=== PATIENT | female | born 1945 | race Caucasian/White ===

== ENCOUNTER 2017-06-04 12:36 | Inpatient (IN) | payer MEDICARE, BC ==
[2017-06-04] MEDS ORDERED: Ondansetron 4 MG/2 ML SDV IV PRN (13:10)
[2017-06-04] MEDS ORDERED: Acetaminophen 325 MG Tab PO PRN (13:10)
[2017-06-04] MEDS ORDERED: Albuterol/Ipratropium 3.0-0.5 MG/3 ML Neb Soln NEB PRN (13:10)
[2017-06-04] MEDS ORDERED: Magnesium Hydroxide 400 MG/5 ML Susp 30 ML Cup PO PRN (13:10)
[2017-06-04] MEDS ORDERED: Lactated Ringers 1,000 ML IV SCH (13:15)
[2017-06-04 14:06] LABS: CHLORIDE,CL 102 mEq/L (98-106); SODIUM,NA 137 mEq/L (136-145)
[2017-06-04] MEDS ORDERED: ALPRAZolam 0.25 MG Tab PO PRN (16:01)
[2017-06-04] MEDS ORDERED: Warfarin 2.5 MG Tab PO SCH (17:00)
[2017-06-04] MEDS: Calcium Carbonate/Vitamin D3 1250 MG-200 Unit Tab PO SCH (17:26)
[2017-06-04] MEDS: D5 1/2 NS w/ 20 mEq/L KCl 1,000 ML IV SCH (19:16)
[2017-06-04] MEDS: atorvaSTATin 10 MG Tab PO SCH (19:46)
[2017-06-04] MEDS: Temazepam 15 MG Cap PO PRN (20:48)
[2017-06-04] MEDS ORDERED: methylPREDNISolone Sodium Succinate 125 MG/2 ML SDV IVPUSH SCH (22:00)
[2017-06-05] MEDS: D5 1/2 NS w/ 20 mEq/L KCl 1,000 ML IV SCH ×2 (03:23→13:26)
[2017-06-05] MEDS: Calcium Carbonate/Vitamin D3 1250 MG-200 Unit Tab PO SCH (07:37)
[2017-06-05 11:45] LABS: CHLORIDE,CL 109 mEq/L (98-106); SODIUM,NA 143 mEq/L (136-145)
--- NOTE | 2017-06-05 13:15 | PCM.PN ---
- General Info Date of Service: 06/05/17 Admission Dx/Problem (Free Text): Weakness Viral Bronchiolitis Leukopenia Subjective Update: Patient reports she is feeling much better than yesterday. She continues to feel weak, but reports she is at least able to be up moving some, which she wasn 't able to do yesterday. She has ambulated in the coughlin this morning. Does report some dyspnea with exertion. She reports she has continued cough. She has coughed up some sputum a couple times. Sputum sample sent. She has been afebrile through the night. She has been eating and drinking without difficulty. Her weight is up 3 lbs today. She does report she has had some diarrhea this morning. She does not feel ready for discharge as she continues to feel weak. Functional Status: Reports: Pain Controlled, Tolerating Diet, Ambulating, Urinating. Denies: New Symptoms - Review of Systems General: Reports: Weakness, Fatigue, Malaise, Appetite (improved). Denies: Fever, Chills, Night Sweats HEENT: Reports: Post Nasal Drip, Sinus Congestion, Rhinitis. Denies: Headaches , Sore Throat Pulmonary: Reports: Shortness of Breath, Pleuritic Chest Pain (to lower bilateral ribs/diaphragm), Cough, Sputum. Denies: Hemoptysis, Wheezing Cardiovascular: Reports: Dyspnea on Exertion. Denies: Chest Pain, Palpitations , Edema, Lightheadedness Gastrointestinal: Reports: Diarrhea. Denies: Abdominal Pain, Constipation, Decreased Appetite, Hematochezia, Melena, Nausea, Vomiting Genitourinary: Reports: No Symptoms. Denies: Dysuria, Frequency, Urgency Musculoskeletal: Reports: No Symptoms Skin: Reports: Pallor Neurological: Reports: No Symptoms Psychiatric: Reports: No Symptoms - Patient Data Vitals - Most Recent: Last Vital Signs Temp 97.7 F 06/05/17 07:50 Pulse 72 06/05/17 07:50 Resp 20 06/05/17 07:50 BP 111/67 06/05/17 07:50 Pulse Ox 98 06/05/17 07:50 Weight - Most Recent: 124 lb 4.8 oz I&O - Last 24 Hours: Intake & Output 06/04/17 06/05/17 06/05/17 22:59 06:59 14:59 Intake Total 165 1300 200 Output Total 800 600 600 Balance -635 700 -400 Lab Results Last 24 Hours: Laboratory Results - last 24 hr 06/04/17 06/04/17 06/04/17 Range/Units 13:30 13:30 13:30 WBC 3.2 L (5.0-10.0) 10^3/uL RBC 4.88 (4.00-5.50) 10^6/uL Hgb 15.1 (12.0-16.0) g/dL Hct 42.6 (37.0-47.0) % MCV 87.3 (82.0-94.0) fL MCH 30.9 (27.0-32.0) pg MCHC 35.4 (33.0-38.0) g/dL RDW Coeff of Finn 12.7 (11.0-15.0) % Plt Count 153 (150-400) 10^3/uL Neut % (Auto) 57.3 (35-85) % Lymph % (Auto) 27.0 (10-55) % Randall % (Auto) 15.4 (0-16) % Eos % (Auto) 0 (0-5) % Baso % (Auto) 0.3 (0-3) % Neut # (Auto) 1.83 (1.80-7.00) 10^3/uL Lymph # (Auto) 0.86 L (1.00-4.80) 10^3/uL Randall # (Auto) 0.49 (0.00-0.80) 10^3/uL Eos # (Auto) 0.00 (0.00-0.45) 10^3/uL Baso # (Auto) 0.01 10^3/uL ESR (0-20) mm/hr PT 20.2 H (9.7-12.3) SEC INR 1.84 H (0.92-1.18) Sodium 137 (136-145) mEq/L Potassium 3.1 L (3.5-5.0) mEq/L Chloride 102 (98-106) mEq/L Carbon Dioxide 27 (21-32) mmol/L BUN 16 (7-18) mg/dL Creatinine 0.9 (0.6-1.0) mg/dL Est Cr Clr Drug Dosing 50.00 mL/min Estimated GFR (MDRD) > 60 (>=60) mL/min Glucose 98 (75-99) mg/dL Calcium 8.2 L (8.4-10.1) mg/dL Magnesium 2.2 (1.8-2.4) mg/dL Total Bilirubin 0.7 (0.0-1.0) mg/dL AST 47 H (15-37) U/L ALT 46 (12-78) U/L Alkaline Phosphatase 67 (46-116) U/L Creatine Kinase (21-215) U/L C-Reactive Protein 1.0 H (0.2-0.8) mg/dL Total Protein 6.5 (6.4-8.2) g/dL Albumin 3.2 L (3.4-5.0) g/dL TSH, Ultra Sensitive 1.28 (0.36-5.60) uIU/mL Urine Color (YELLOW) Urine Appearance (CLEAR) Urine pH (4.5-8.0) Ur Specific [place] (1.003-1.020) Urine Protein (NEGATIVE) mg/dL Urine Glucose (UA) (NEGATIVE) mg/dL Urine Ketones (NEGATIVE) mg/dL Urine Occult Blood (NEGATIVE) Urine Nitrite (NEGATIVE) Urine Bilirubin (NEGATIVE) Urine Urobilinogen (0.2-1.0) EU/dL Ur Leukocyte Esterase (NEGATIVE) Urine RBC (0-5) /HPF Urine WBC (0-5) /HPF Ur Epithelial Cells (NOT SEEN) /HPF 06/04/17 06/05/17 06/05/17 Range/Units 21:50 11:25 11:25 WBC 1.8 L* (5.0-10.0) 10^3/uL RBC 4.61 (4.00-5.50) 10^6/uL Hgb 14.3 (12.0-16.0) g/dL Hct 41.5 (37.0-47.0) % MCV 90.0 (82.0-94.0) fL MCH 31.0 (27.0-32.0) pg MCHC 34.5 (33.0-38.0) g/dL RDW Coeff of Finn 13.0 (11.0-15.0) % Plt Count 154 (150-400) 10^3/uL Neut % (Auto) 46.8 (35-85) % Lymph % (Auto) 36.4 (10-55) % Randall % (Auto) 16.3 H (0-16) % Eos % (Auto) 0 (0-5) % Baso % (Auto) 0.5 (0-3) % Neut # (Auto) 0.86 L (1.80-7.00) 10^3/uL Lymph # (Auto) 0.67 L (1.00-4.80) 10^3/uL Randall # (Auto) 0.30 (0.00-0.80) 10^3/uL Eos # (Auto) 0.00 (0.00-0.45) 10^3/uL Baso # (Auto) 0.01 10^3/uL ESR 6 (0-20) mm/hr PT 22.4 H (9.7-12.3) SEC INR 2.03 H (0.92-1.18) Sodium (136-145) mEq/L Potassium (3.5-5.0) mEq/L Chloride (98-106) mEq/L Carbon Dioxide (21-32) mmol/L BUN (7-18) mg/dL Creatinine (0.6-1.0) mg/dL Est Cr Clr Drug Dosing mL/min Estimated GFR (MDRD) (>=60) mL/min Glucose (75-99) mg/dL Calcium (8.4-10.1) mg/dL Magnesium (1.8-2.4) mg/dL Total Bilirubin (0.0-1.0) mg/dL AST (15-37) U/L ALT (12-78) U/L Alkaline Phosphatase (46-116) U/L Creatine Kinase (21-215) U/L C-Reactive Protein (0.2-0.8) mg/dL Total Protein (6.4-8.2) g/dL Albumin (3.4-5.0) g/dL TSH, Ultra Sensitive (0.36-5.60) uIU/mL Urine Color Light yellow (YELLOW) Urine Appearance Clear (CLEAR) Urine pH 7.5 (4.5-8.0) Ur Specific [place] 1.015 (1.003-1.020) Urine Protein Negative (NEGATIVE) mg/dL Urine Glucose (UA) Negative (NEGATIVE) mg/dL Urine Ketones Negative (NEGATIVE) mg/dL Urine Occult Blood Trace-intact H (NEGATIVE) Urine Nitrite Negative (NEGATIVE) Urine Bilirubin Negative (NEGATIVE) Urine Urobilinogen 0.2 (0.2-1.0) EU/dL Ur Leukocyte Esterase Negative (NEGATIVE) Urine RBC 0-5 (0-5) /HPF Urine WBC Not seen (0-5) /HPF Ur Epithelial Cells Few H (NOT SEEN) /HPF 06/05/ Range/Units 11:25 WBC (5.0-10.0) 10^3/uL RBC (4.00-5.50) 10^6/uL Hgb (12.0-16.0) g/dL Hct (37.0-47.0) % MCV (82.0-94.0) fL MCH (27.0-32.0) pg MCHC (33.0-38.0) g/dL RDW Coeff of Finn (11.0-15.0) % Plt Count (150-400) 10^3/uL Neut % (Auto) (35-85) % Lymph % (Auto) (10-55) % Randall % (Auto) (0-16) % Eos % (Auto) (0-5) % Baso % (Auto) (0-3) % Neut # (Auto) (1.80-7.00) 10^3/uL Lymph # (Auto) (1.00-4.80) 10^3/uL Randall # (Auto) (0.00-0.80) 10^3/uL Eos # (Auto) (0.00-0.45) 10^3/uL Baso # (Auto) 10^3/uL ESR (0-20) mm/hr PT (9.7-12.3) SEC INR (0.92-1.18) Sodium 143 (136-145) mEq/L Potassium 3.5 (3.5-5.0) mEq/L Chloride 109 H (98-106) mEq/L Carbon Dioxide 29 (21-32) mmol/L BUN 11 (7-18) mg/dL Creatinine 0.9 (0.6-1.0) mg/dL Est Cr Clr Drug Dosing 51.03 mL/min Estimated GFR (MDRD) > 60 (>=60) mL/min Glucose 178 H D (75-99) mg/dL Calcium 8.1 L (8.4-10.1) mg/dL Magnesium (1.8-2.4) mg/dL Total Bilirubin (0.0-1.0) mg/dL AST (15-37) U/L ALT (12-78) U/L Alkaline Phosphatase (46-116) U/L Creatine Kinase 90 (21-215) U/L C-Reactive Protein (0.2-0.8) mg/dL Total Protein (6.4-8.2) g/dL Albumin (3.4-5.0) g/dL TSH, Ultra Sensitive (0.36-5.60) uIU/mL Urine Color (YELLOW) Urine Appearance (CLEAR) Urine pH (4.5-8.0) Ur Specific [place] (1.003-1.020) Urine Protein (NEGATIVE) mg/dL Urine Glucose (UA) (NEGATIVE) mg/dL Urine Ketones (NEGATIVE) mg/dL Urine Occult Blood (NEGATIVE) Urine Nitrite (NEGATIVE) Urine Bilirubin (NEGATIVE) Urine Urobilinogen (0.2-1.0) EU/dL Ur Leukocyte Esterase (NEGATIVE) Urine RBC (0-5) /HPF Urine WBC (0-5) /HPF Ur Epithelial Cells (NOT SEEN) /HPF Miguel Results Last 24 Hours: Microbiology 06/04/17 19:00 Gram Stain - Final Sputum - Expectorated 06/04/17 13:35 Influenza Type A Antigen Screen - Final Nasopharyngeal Swab - Nare, Unspecified NEGATIVE INFLUENZA A VIRUS AG Influenza Type B Antigen Screen - Final NEGATIVE INFLUENZA B VIRUS AG Med Orders - Current: Current Medications Acetaminophen (Tylenol) 650 mg PO Q4H PRN PRN Reason: Pain (Mild 1-3)/fever Albuterol/Ipratropium (Duoneb 3.0-0.5 Mg/3 Ml) 3 ml NEB Q4H PRN PRN Reason: Shortness Of Breath/wheezing Alprazolam (Xanax) 0.25 mg PO Q8H PRN PRN Reason: Anxiety Atorvastatin Calcium (Lipitor) 40 mg PO BEDTIME [facility] Last Admin: 06/04/17 19:46 Dose: 40 mg Calcium Carbonate (Calcium Carbonate/Vitamin D 1250 Mg-200 Unit) 2 tab PO BIDMEALS [facility] Last Admin: 06/05/17 07:37 Dose: 2 tab Potassium Chloride/Dextrose/Sod Cl (D5 1/2 Ns W/ 20 Meq/L Kcl) 1,000 mls @ 125 mls/hr IV ASDIRECTED [facility] Last Admin: 06/05/17 03:23 Dose: 125 mls/hr Magnesium Hydroxide (Milk Of Magnesia) 30 ml PO Q12H PRN PRN Reason: Constipation Methylprednisolone Sodium Succinate (Solu-Medrol) 62.5 mg IVPUSH Q24H [facility] Ondansetron HCl (Zofran) 4 mg IV Q6H PRN PRN Reason: Nausea/Vomiting Last Admin: 06/04/17 13:45 Dose: 4 mg Temazepam (Restoril) 15 mg PO BEDTIME PRN PRN Reason: Sleep Last Admin: 06/04/17 20:48 Dose: 15 mg Warfarin Sodium (Coumadin) 5 mg PO SuTuThSa@1200 [facility] Warfarin Sodium (Coumadin) 7.5 mg PO MoWeFr@1200 [facility] Last Admin: 06/04/17 17:26 Dose: 7.5 mg Discontinued Medications Lactated Ringer's (Ringers, Lactated) 1,000 mls @ 125 mls/hr IV ASDIRECTED [facility] Last Admin: 06/04/17 13:38 Dose: 125 mls/hr Methylprednisolone Sodium Succinate (Solu-Medrol) 62.5 mg IVPUSH Q24H [facility] Last Admin: 06/04/17 22:14 Dose: 62.5 mg - Exam Quality Assessment: No: Supplemental Oxygen General: Alert, Oriented, No Acute Distress HEENT: Pupils Equal, Pupils Reactive, EOMI, Other (dry mucous membranes) Neck: Supple Lungs: Clear to Auscultation, Normal Respiratory Effort Cardiovascular: Regular Rate, Regular Rhythm GI/Abdominal Exam: Normal Bowel Sounds, Soft, Non-Tender, No Organomegaly, No Distention, No Abnormal Bruit, No Mass, Pelvis Stable Back Exam: Normal Inspection, Full Range of Motion Extremities: Normal Inspection, Normal Range of Motion, Non-Tender, No Pedal Edema, Normal Capillary Refill Skin: Other (pallor) Neurological: No New Focal Deficit Psy/Mental Status: Alert, Normal Affect, Normal Mood - Problem List & Annotations (1) Leukopenia SNOMED Code(s): 23290916 Code(s): D72.819 - DECREASED WHITE BLOOD CELL COUNT, UNSPECIFIED Status: Acute Current Visit: Yes Qualifiers: Leukopenia type: neutropenia Neutropenia type: due to infection Qualified Code(s): D70.3 - Neutropenia due to infection (2) Weakness generalized SNOMED Code(s): 54785349 Code(s): R53.1 - WEAKNESS Status: Acute Current Visit: Yes (3) Acute viral bronchiolitis SNOMED Code(s): 794744715 Code(s): J21.8 - ACUTE BRONCHIOLITIS DUE TO OTHER SPECIFIED ORGANISMS; B97.89 - OTH VIRAL AGENTS THE CAUSE OF DISEASES CLASSD ELSWHR Status: Acute Current Visit: Yes - Problem List Review Problem List Initiated/Reviewed/Updated: Yes - My Orders Last 24 Hours: My Active Orders 06/04/17 13:10 Patient Status [ADT] Routine Height and Weight [RC] 0600 Oxygen Therapy [RC] .PRN Up ad Diya [RC] .PRN Vital Signs [RC] 0000,0400,0800,1200,1600,2000 Chest 2V [CR] Routine Acetaminophen [Tylenol] 650 mg PO Q4H PRN Albuterol/Ipratropium [DuoNeb 3.0-0.5 MG/3 ML] 3 ml NEB Q4H PRN Magnesium Hydroxide [Milk of Magnesia] 30 ml PO Q12H PRN Ondansetron [Zofran] 4 mg IV Q6H PRN Temazepam [Restoril] 15 mg PO BEDTIME PRN Blood Culture x2 Reflex Set [OM.PC] Stat Resuscitation Status Routine 06/04/17 13:12 Intake and Output [RC] 0600,1800 06/04/17 13:14 RT Aerosol Therapy [RC] .PRN 06/04/17 13:30 CULTURE BLOOD [BC] Stat 06/04/17 13:35 CULTURE BLOOD [BC] Stat 06/04/17 16:01 ALPRAZolam [Xanax] 0.25 mg PO Q8H PRN 06/04/17 16:45 D5 1/2 NS w/ 20 mEq/L KCl 1,000 ml IV ASDIRECTED 06/04/17 17:00 Warfarin [Coumadin] 7.5 mg PO MoWeFr@1200 06/04/17 17:30 Calcium Carbonate/Vitamin D3 [Calcium Carbonate/Vitamin D 1250 MG-200 Unit] 2 tab PO BIDMEALS 06/04/17 19:00 CULTURE SPUTUM + SMEAR [RM] Stat 06/04/17 20:00 atorvaSTATin [Lipitor] 40 mg PO BEDTIME 06/04/17 Dinner Regular Diet [DIET] 06/05/17 12:00 Warfarin [Coumadin] 5 mg PO SuTuThSa@1200 methylPREDNISolone Sod Succ [Solu-MEDROL] 62.5 mg IVPUSH Q24H - Plan Plan:: Continue steroids, duonebs PRN, and IVF Push fluids and encourage PO intake Wash hands frequently WBC 1.8 today. Given neutropenia and sinus congestion, will start Rocephin. Patient has improved tremendously with IVF, I suspect patient will be ready for discharge in 1-2 days.
[2017-06-05] MEDS: Warfarin 5 MG Tab PO SCH (13:25)
[2017-06-05] MEDS: methylPREDNISolone Sodium Succinate 125 MG/2 ML SDV IVPUSH SCH (13:25)
[2017-06-05] MEDS: cefTRIAXone 1 GM Vial IVPUSH SCH (14:00)
[2017-06-05] MEDS: atorvaSTATin 10 MG Tab PO SCH (19:16)
[2017-06-05] MEDS: Temazepam 15 MG Cap PO PRN (19:17)
[2017-06-05] MEDS ORDERED: Lactated Ringers 1,000 ML ONE (21:54)
[2017-06-06 07:31] LABS: CHLORIDE,CL 111 mEq/L (98-106); SODIUM,NA 144 mEq/L (136-145)
[2017-06-06] MEDS ORDERED: Calcium Carbonate/Vitamin D3 1250 MG-200 Unit Tab PO SCH (08:00)
[2017-06-06] MEDS ORDERED: Potassium Chloride 10 MEQ Tab.ER PO SCH (11:15)
[2017-06-06] MEDS ORDERED: Take Home: predniSONE 20 MG, 2 Tab Pack PO ONE (11:39)
[2017-06-06] MEDS ORDERED: valACYclovir 500 MG Tab PO SCH (11:45)
[2017-06-06 11:49] VITALS: BP 132/80
[2017-06-06] MEDS ORDERED: valACYclovir 500 MG Tab PO ONE (11:51)
--- NOTE | 2017-06-06 11:56 | PCM.DCSUM1 ---
Discharge Summary - Hospital Course Free Text/Narrative:: Arleen is a 72 year old female who was admitted to the hospital from the clinic on 06/04/2017. She was admitted with severe weakness, dehydration, and viral bronchiolitis. Lab work upon admission showed leukopenia, suggesting viral etiology. Patient was started on IV steroids, IVF, and duonebs. Throughout hospital stay, patients level of energy and strength improved immensely. On the day of discharge, patient was ambulating in the halls. She reported continued cough, but was overall feeling much better. She felt ready for discharge. She was afebrile and labs were stable. She did have multiple cold sores to her upper and lower lips. Requests valtrex, as she has taken this in the past. She will be discharged home with two additional days of prednisone. She will also be discharged home on Valtrex 1 g BID x 3 days. She will follow up in clinic on Wednesday. Will recheck her labs prior to clinic visit. Patient agreeable to plan. - Discharge Data Discharge Date: 06/06/17 Discharge Disposition: Home, Self-Care 01 Condition: Good - Discharge Diagnosis/Problem(s) (1) Leukopenia SNOMED Code(s): 09764701 ICD Code: D72.819 - DECREASED WHITE BLOOD CELL COUNT, UNSPECIFIED Status: Acute Qualifiers: Leukopenia type: neutropenia Neutropenia type: due to infection Qualified Code(s): D70.3 - Neutropenia due to infection (2) Weakness generalized SNOMED Code(s): 14254050 ICD Code: R53.1 - WEAKNESS Status: Acute (3) Acute viral bronchiolitis SNOMED Code(s): 838407970 ICD Code: J21.8 - ACUTE BRONCHIOLITIS DUE TO OTHER SPECIFIED ORGANISMS; B97.89 - OTH VIRAL AGENTS THE CAUSE OF DISEASES CLASSD ELSWHR Status: Acute - Patient Instructions Diet: Usual Diet as Tolerated Activity: As Tolerated Driving: May Drive Today Notify Provider of: Fever, Increased Pain, Swelling and Redness, Drainage, Nausea and/or Vomiting - Discharge Plan Prescriptions/Med Rec: valACYclovir [Valtrex] 1,000 mg PO BID 1 Days #2 tablet Home Medications: Home Meds ALPRAZolam [Alprazolam] 0.25 tab PO Q8H PRN 11/21/13 [History] Warfarin [Coumadin] 7.5 mg PO MOWEFR 11/21/13 [History] atorvaSTATin [Lipitor] 40 mg PO BEDTIME 11/21/13 [History] Calcium Carbonate/Vitamin D3 [Calcium 600 + Vit D Tablet] 1 each PO BID [History] Warfarin [Coumadin] 5 mg PO SUTUTHSA 05/24/14 [History] Denosumab [Prolia] 60 mg SUBCUT Q180D 03/28/15 [History] Cholecalciferol (Vitamin D3) [Vitamin D] 5,000 unit PO DAILY 06/05/15 [History] Flaxseed Oil 1,000 mg PO BID 06/05/15 [History] valACYclovir [Valtrex] 1,000 mg PO BID 1 Days #2 tablet 06/06/17 [Rx] Patient Handouts: Acute Bronchitis, Dehydration, Adult Referrals: Teresa Hooker NP [ED Midlevel Provider] - - Discharge Summary/Plan Comment Discharge Summary/Plan Comment: Valtrex BID x 3 days for cold sores. Will dispense 3 doses for take home, with 2 additional doses at pharmacy. Prednisone x 2 additional days. Take 20 mg daily x 2 days. Take home medications sent with patient. Follow up in clinic on Wednesday. Will get lab work prior to clinic visit. Push fluids as much as possible the next few days. Wash hands frequently Avoid large crowds Do not return to work until after follow up appointment on Wednesday. Note provided to patient. - General Info Date of Service: 06/06/17 Admission Dx/Problem (Free Text: Weakness Viral Bronchiolitis Leukopenia Subjective Update: Patient reports she is feeling much better. She continues to feel weak, but reports she is at least able to be up moving She has been ambulating in the halls. Does report some dyspnea with exertion. She reports she has continued cough, which seems to be more loose. Sputum sample showed normal lida. She has been afebrile. She has been eating and drinking without difficulty. Her weight is almost back to baseline at 126 lbs. Functional Status: Reports: Pain Controlled, Tolerating Diet, Ambulating, Urinating. Denies: New Symptoms - Review of Systems General: Reports: Weakness (improved), Fatigue (improved). Denies: Fever, Chills HEENT: Reports: Sinus Congestion Pulmonary: Reports: Cough, Sputum. Denies: Shortness of Breath, Pleuritic Chest Pain, Hemoptysis, Wheezing Cardiovascular: Reports: Dyspnea on Exertion. Denies: Chest Pain, Palpitations , Edema, Lightheadedness Gastrointestinal: Reports: No Symptoms Genitourinary: Reports: No Symptoms Musculoskeletal: Reports: No Symptoms Skin: Reports: No Symptoms Neurological: Reports: No Symptoms Psychiatric: Reports: No Symptoms - Patient Data Vitals - Most Recent: Last Vital Signs Temp 98.3 F 06/06/17 08:00 Pulse 65 06/06/17 08:00 Resp 19 06/06/17 08:00 BP 132/80 06/06/17 08:00 Pulse Ox 98 06/06/17 08:00 Weight - Most Recent: 126 lb 12.8 oz I&O - Last 24 hours: Intake & Output 06/05/17 06/06/17 06/06/17 22:59 06:59 14:59 Intake Total 860 300 Output Total 900 900 Balance -40 -600 Lab Results - Last 24 hrs: Laboratory Results - last 24 hr 06/05/17 06/06/17 06/06/17 Range/Units 11:25 06:55 07:00 WBC 3.5 L (5.0-10.0) 10^3/uL RBC 4.39 (4.00-5.50) 10^6/uL Hgb 13.5 (12.0-16.0) g/dL Hct 39.7 (37.0-47.0) % MCV 90.4 (82.0-94.0) fL MCH 30.8 (27.0-32.0) pg MCHC 34.0 (33.0-38.0) g/dL RDW Coeff of Finn 12.9 (11.0-15.0) % Plt Count 159 (150-400) 10^3/uL Neut % (Auto) 45.8 (35-85) % Lymph % (Auto) 40.9 (10-55) % [place] % (Auto) 13.3 (0-16) % Eos % (Auto) 0 (0-5) % Baso % (Auto) 0 (0-3) % Neut # (Auto) 1.59 L (1.80-7.00) 10^3/uL Lymph # (Auto) 1.42 (1.00-4.80) 10^3/uL [place] # (Auto) 0.46 (0.00-0.80) 10^3/uL Eos # (Auto) 0.00 (0.00-0.45) 10^3/uL Baso # (Auto) 0.00 10^3/uL ESR 6 (0-20) mm/hr Sodium 144 (136-145) mEq/L Potassium 3.4 L (3.5-5.0) mEq/L Chloride 111 H (98-106) mEq/L Carbon Dioxide 25 (21-32) mmol/L BUN 9 (7-18) mg/dL Creatinine 0.8 (0.6-1.0) mg/dL Est Cr Clr Drug Dosing 58.56 mL/min Estimated GFR (MDRD) > 60 (>=60) mL/min Glucose 98 D (75-99) mg/dL Calcium 8.0 L (8.4-10.1) mg/dL C-Reactive Protein < 0.2 L (0.2-0.8) mg/dL DANIEL Results - Last 24 hrs: Microbiology 06/04/17 19:00 Gram Stain - Final Sputum - Expectorated Sputum Culture - Preliminary 06/04/17 13:35 Aerobic Blood Culture - Preliminary Blood - Venous - Lab Draw NO GROWTH AFTER 1 DAY Anaerobic Blood Culture - Preliminary NO GROWTH AFTER 1 DAY 06/04/17 13:30 Aerobic Blood Culture - Preliminary Blood - Venous NO GROWTH AFTER 1 DAY Anaerobic Blood Culture - Preliminary NO GROWTH AFTER 1 DAY Med Orders - Current: Current Medications Acetaminophen (Tylenol) 650 mg PO Q4H PRN PRN Reason: Pain (Mild 1-3)/fever Albuterol/Ipratropium (Duoneb 3.0-0.5 Mg/3 Ml) 3 ml NEB Q4H PRN PRN Reason: Shortness Of Breath/wheezing Alprazolam (Xanax) 0.25 mg PO Q8H PRN PRN Reason: Anxiety Atorvastatin Calcium (Lipitor) 40 mg PO BEDTIME [facility] Last Admin: 06/05/17 19:16 Dose: 40 mg Calcium Carbonate (Calcium Carbonate/Vitamin D 1250 Mg-200 Unit) 1 tab PO BIDMEALS [facility] Last Admin: 06/06/17 07:34 Dose: 1 tab Ceftriaxone Sodium (Rocephin) 1 gm IVPUSH Q24H [facility] Last Admin: 06/05/17 14:00 Dose: 1 gm Potassium Chloride/Dextrose/Sod Cl (D5 1/2 Ns W/ 20 Meq/L Kcl) 1,000 mls @ 125 mls/hr IV ASDIRECTED [facility] Last Admin: 06/05/17 13:26 Dose: 125 mls/hr Magnesium Hydroxide (Milk Of Magnesia) 30 ml PO Q12H PRN PRN Reason: Constipation Methylprednisolone Sodium Succinate (Solu-Medrol) 62.5 mg IVPUSH Q24H [facility] Last Admin: 06/05/17 13:25 Dose: 62.5 mg Ondansetron HCl (Zofran) 4 mg IV Q6H PRN PRN Reason: Nausea/Vomiting Last Admin: 06/04/17 13:45 Dose: 4 mg Potassium Chloride (Klor-Con 10) 20 meq PO DAILY [facility] Temazepam (Restoril) 15 mg PO BEDTIME PRN PRN Reason: Sleep Last Admin: 06/05/17 19:17 Dose: 15 mg Valacyclovir HCl (Valtrex) 1,000 mg PO BID [facility] Valacyclovir HCl (Valtrex) 1,000 mg PO BID [facility] Warfarin Sodium (Coumadin) 5 mg PO SuTuThSa@1200 [facility] Last Admin: 06/05/17 13:25 Dose: 5 mg Warfarin Sodium (Coumadin) 7.5 mg PO MoWeFr@1200 [facility] Last Admin: 06/04/17 17:26 Dose: 7.5 mg Discontinued Medications Calcium Carbonate (Calcium Carbonate/Vitamin D 1250 Mg-200 Unit) 2 tab PO BIDMEALS [facility] Last Admin: 06/05/17 07:37 Dose: 2 tab Lactated Ringer's (Ringers, Lactated) 1,000 mls @ 125 mls/hr IV ASDIRECTED [facility] Last Admin: 06/04/17 13:38 Dose: 125 mls/hr Lactated Ringer's (Ringers, Lactated) Confirm Administered Dose 1,000 mls @ as directed .ROUTE .STK-MED ONE Stop: 06/05/17 21:55 Last Admin: 06/05/17 21:41 Dose: 75 ml Methylprednisolone Sodium Succinate (Solu-Medrol) 62.5 mg IVPUSH Q24H [facility] Last Admin: 06/04/17 22:14 Dose: 62.5 mg Prednisone (Take Home: Prednisone 20 Mg, 2 Tab Pack) 1 packet PO ONETIME ONE Stop: 06/06/17 11:40 - Exam Quality Assessment: Denies: Supplemental Oxygen General: Reports: Alert, Oriented Neck: Reports: Supple Lungs: Reports: Clear to Auscultation, Normal Respiratory Effort Cardiovascular: Reports: Regular Rate, Regular Rhythm GI/Abdominal Exam: Normal Bowel Sounds, Soft, Non-Tender, No Organomegaly, No Distention, No Abnormal Bruit, No Mass, Pelvis Stable Back Exam: Reports: Normal Inspection, Full Range of Motion Extremities: Normal Inspection, Normal Range of Motion, Non-Tender, No Pedal Edema, Normal Capillary Refill Skin: Reports: Warm, Dry, Intact Neurological: Reports: No New Focal Deficit Psy/Mental Status: Reports: Alert, Normal Affect, Normal Mood *Q Meaningful Use (DIS) - VTE *Q VTE Criteria *Q: - Stroke *Q Stroke Criteria *Q: - AMI *Q AMI Criteria *Q:
[2017-06-06] MEDS: Warfarin 5 MG Tab PO SCH (12:19)
[2017-06-06] MEDS: methylPREDNISolone Sodium Succinate 125 MG/2 ML SDV IVPUSH SCH (12:20)
[2017-06-06] MEDS: cefTRIAXone 1 GM Vial IVPUSH SCH (14:34)
[2017-06-06] MEDS ORDERED: predniSONE 20 MG Tab PO ONE (15:29)
== END 2017-06-06 15:30 | disposition home or self-care (01) | DRG 948 ==
LOC: CC.MS 12:36 → UNDOADMIN 12:36 → CC.MS 13:10
PROVIDERS: ADMIT Nurse Practitioner Family; ATTEND General Practice
DX: R53.1 Weakness (principal); J21.8 Acute bronchiolitis due to other specified organisms; B97.89 Other viral agents as the cause of diseases classified elsewhere; E86.0 Dehydration; D72.819 Decreased white blood cell count, unspecified; B00.1 Herpesviral vesicular dermatitis; Z88.0 Allergy status to penicillin; Z88.6 Allergy status to analgesic agent; Z79.01 Long term (current) use of anticoagulants; Z79.899 Other long term (current) drug therapy
CPT/HCPCS: 36415; 71020; 80048; 80053; 81001; 82550; 83735; 84443; 85025; 85610; 85651; 86140; 87040; 87070; 87205; 87804; 93005; A9270-GY; J0696; J2405; J2930; J3480; J7120

== ENCOUNTER 2019-03-04 19:52 | Emergency (ER) | payer MEDICARE, BC ==
[2019-03-04] MEDS ORDERED: Acetaminophen/HYDROcodone 325-5 MG Tab PO ONE (19:53)
[2019-03-04] MEDS ORDERED: Ketorolac 10 MG Tab PO ONE (19:53)
[2019-03-04] MEDS ORDERED: Take Home: Acetaminophen/HYDROcodone 325-5 MG, 2 Tab Pack PO ONE (19:55)
[2019-03-04] MEDS ORDERED: Take Home: Ketorolac 10 MG Tab, 4 Tab Pack PO ONE (19:55)
[2019-03-04 20:01] VITALS: BP 144/84; PULSE 77
--- NOTE | 2019-03-04 20:01 | EDM.PDOC ---
ED HPI GENERAL MEDICAL PROBLEM - General Chief Complaint: Lower Extremity Injury/Pain Stated Complaint: right knee pain Time Seen by Provider: 03/04/19 19:52 Source of Information: Reports: Patient History Limitations: Reports: No Limitations - History of Present Illness INITIAL COMMENTS - FREE TEXT/NARRATIVE: in with c/o right knee pain, no injury or trauma, no ankle pain, no hip pain, no redness or other sx, sx since yesterday Onset: Gradual Duration: Day(s): Location: Reports: Upper Extremity, Right Quality: Reports: Ache Severity: Mild Improves with: Reports: None Worsens with: Reports: Movement Associated Symptoms: Reports: No Other Symptoms 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: Other (see below) (ice) - Related Data Allergies Allergy/AdvReac Type Severity Reaction Status Date / Time amoxicillin [Amoxicillin] Allergy Rash Verified 09/30/18 11:00 meperidine HCl [From Demerol] Allergy Cannot Verified 09/30/18 11:00 Remember Penicillins Allergy Shaking Verified 09/30/18 11:00 Home Meds: Home Meds ALPRAZolam [Alprazolam] 0.25 tab PO Q8H PRN 11/21/13 [History] atorvaSTATin [Lipitor] 40 mg PO BEDTIME 11/21/13 [History] Calcium Carbonate/Vitamin D3 [Calcium 600 + Vit D Tablet] 1 each PO BID [History] Warfarin [Coumadin] 5 mg PO DAILY 05/24/14 [History] Denosumab [Prolia] 60 mg SUBCUT Q180D 03/28/15 [History] Cholecalciferol (Vitamin D3) [Vitamin D] 5,000 unit PO DAILY 06/05/15 [History] Flaxseed Oil 1,000 mg PO BID 06/05/15 [History] Folic Acid 1 tab PO DAILY 09/30/18 [History] Multivitamin,Stress Formula [Stress Formula] 1 tab PO DAILY 09/30/18 [History] Past Medical History HEENT History: Reports: Cataract, Impaired Vision Gastrointestinal History: Reports: GERD Musculoskeletal History: Reports: Osteoporosis Neurological History: Reports: TIA - Past Surgical History GI Surgical History: Reports: Appendectomy, Cholecystectomy, Colonoscopy, EGD, Lovely Fundoplication Social & Family History - Family History Cardiac: Reports: Hypertension - Tobacco Use Smoking Status *Q: Never Smoker - Alcohol Use Alcohol Use History: No - Living Situation & Occupation Living situation: Reports: Alone Occupation: Employed Review of Systems - Review of Systems Review Of Systems: See Below Constitutional: Reports: No Symptoms. Denies: Chills, Fever Respiratory: Reports: No Symptoms. Denies: Shortness of Breath Cardiovascular: Reports: No Symptoms. Denies: Chest Pain GI/Abdominal: Reports: No Symptoms. Denies: Abdominal Pain Musculoskeletal: Reports: Joint Pain (right knee). Denies: Neck Pain, Back Pain , Joint Swelling Skin: Reports: No Symptoms. Denies: Bruising, Rash, Erythema Neurological: Reports: No Symptoms. Denies: Numbness, Tingling, Weakness Psychiatric: Reports: No Symptoms ED EXAM, GENERAL - Physical Exam Exam: See Below Exam Limited By: No Limitations General Appearance: Alert, WD/WN, No Apparent Distress Neck: Normal Inspection, Supple, Non-Tender, Full Range of Motion Respiratory/Chest: No Respiratory Distress, Lungs Clear, Normal Breath Sounds, Chest Non-Tender Cardiovascular: Normal Peripheral Pulses, Regular Rate, Rhythm, No Edema Peripheral Pulses: 2+: Posterior Tibial (L), Posterior Tibial (R) Back Exam: Normal Inspection, Full Range of Motion Extremities: Normal Inspection, Normal Range of Motion, Normal Capillary Refill , Other (pain to the right knee with palpation, no redness or swelling, advised has not done anything out of the ordinary, worked at the longterm today). No: Non-Tender Neurological: Alert, Oriented, Normal Cognition, Normal Gait, No Motor/Sensory Deficits Psychiatric: Normal Affect, Normal Mood Skin Exam: Warm, Dry, Intact, Normal Color, No Rash ED TRAUMA EXTREMITY PROCEDURES - Splinting Right Lower Extremity Pre-Procedure NV Status: Normal Post-Procedure NV Status: Normal Splint Material: Other (fox wrap) Applied & Form Fitted By: Nurse Provider Post-Splint Application NV Check: NV Status Normal Complications: Yes Course - Orders/Labs/Meds Orders: Active Orders 24 hr Category Date Time Status Acetaminophen/HYDROcodone [Take Home: Acetaminophen/ Med 03/04/19 19:55 Once HYDROcod, 2 Tab Pack] 1 packet PO ONETIME ONE Ketorolac [Take Home: Ketorolac 10 MG, 4 Tab Pack] Med 03/04/19 19:55 Once 1 packet PO ONETIME ONE Departure - Departure Time of Disposition: 20:01 Disposition: Home, Self-Care 01 Condition: Good Clinical Impression: Sprain of right knee - Discharge Information *PRESCRIPTION DRUG MONITORING PROGRAM REVIEWED*: Not Applicable *COPY OF PRESCRIPTION DRUG MONITORING REPORT IN PATIENT [place]: Not Applicable Instructions: Knee Sprain, Adult, [id number] Additional Instructions: elevate right knee on two pillows ice off and on x 2 days norco 5/325mg 1 every 4 hours as needed for pain, 2 to go Ketoralac 10mg 1 3 x a day as needed for pain #4 follow up with your family doctor this week, call wednesday for an appointment time for further evaluation and treatment return to the ER sooner if worse or problems - Problem List & Annotations (1) Sprain of right knee SNOMED Code(s): 73712954 Code(s): S83.91XA - SPRAIN OF UNSPECIFIED SITE OF RIGHT KNEE, INITIAL ENCOUNTER Status: Acute Priority: Medium Qualifiers: Encounter type: initial encounter - Problem List Review Problem List Initiated/Reviewed/Updated: Yes - My Orders Last 24 Hours: My Active Orders 03/04/19 19:55 Acetaminophen/HYDROcodone [Take Home: Acetaminophen/HYDROcod, 2 Tab Pack] 1 packet PO ONETIME ONE Ketorolac [Take Home: Ketorolac 10 MG, 4 Tab Pack] 1 packet PO ONETIME ONE - Assessment/Plan Last 24 Hours: My Active Orders 03/04/19 19:55 Acetaminophen/HYDROcodone [Take Home: Acetaminophen/HYDROcod, 2 Tab Pack] 1 packet PO ONETIME ONE Ketorolac [Take Home: Ketorolac 10 MG, 4 Tab Pack] 1 packet PO ONETIME ONE Plan: no injury or trauma, no redness or swelling, no imaging at this point as there is no mechanism to suspect a fx, will apply and fox wrap and have pt follow RICE protocol, will have pt f/u with pcp for further evaluation and tx with possible imaging to include a possible MRI if sx persist
== END 2019-03-04 20:41 | disposition home or self-care (01) ==
LOC: CC.ED 19:52
DX: S83.91XA Sprain of unspecified site of right knee, initial encounter (principal); M81.0 Age-related osteoporosis without current pathological fracture; H26.9 Unspecified cataract; Z79.01 Long term (current) use of anticoagulants; Z88.0 Allergy status to penicillin; Z88.5 Allergy status to narcotic agent; Z86.73 Personal history of transient ischemic attack (TIA), and cerebral infarction without residual deficits; X58.XXXA Exposure to other specified factors, initial encounter
CPT/HCPCS: 99282; A9270-GY

== ENCOUNTER 2019-05-02 08:10 | Observation (INO) | payer MEDICARE, BC ==
[2019-05-02 09:57] LABS: SODIUM,NA 145 mEq/L (136-145)
[2019-05-02 09:59] LABS: CHLORIDE,CL 109 mEq/L (98-106)
[2019-05-02] MEDS ORDERED: Enoxaparin 40 MG/0.4 ML Syringe SUBCUT SCH (11:00)
[2019-05-02] MEDS ORDERED: Ondansetron 4 MG Tab.DIS PO PRN (11:00)
[2019-05-02] MEDS ORDERED: Temazepam 15 MG Cap PO PRN (11:00)
[2019-05-02] MEDS ORDERED: Sodium Chloride 0.9% 10 ML Syringe FLUSH PRN (11:00)
[2019-05-02] MEDS ORDERED: Morphine 2 MG/ML Syringe IVPUSH PRN (11:00)
[2019-05-02] MEDS ORDERED: ALPRAZolam 0.25 MG Tab PO PRN ×2 (13:14→17:18)
[2019-05-02] MEDS ORDERED: Denosumab 60 MG/1 ML Syringe SUBCUT SCH (13:15)
[2019-05-02] MEDS: Acetaminophen 325 MG Tab PO PRN (16:34)
[2019-05-02] MEDS: Calcium Carbonate/Vitamin D3 1250 MG-200 Unit Tab PO SCH (19:25)
[2019-05-02] MEDS ORDERED: Warfarin 5 MG Tab PO SCH (20:00)
[2019-05-02] MEDS ORDERED: atorvaSTATin 10 MG Tab PO SCH (20:00)
[2019-05-02] MEDS ORDERED: Potassium Chloride 10 MEQ Tab.ER PO ONE (21:48)
--- NOTE | 2019-05-02 21:58 | EDM.PDOC ---
ED HPI GENERAL MEDICAL PROBLEM - General Chief Complaint: General Stated Complaint: fast heart rate Time Seen by Provider: 05/02/19 08:35 Source of Information: Reports: Patient History Limitations: Reports: No Limitations - History of Present Illness INITIAL COMMENTS - FREE TEXT/NARRATIVE: Patient presents to ER with complaints of palpitations, feeling lightheaded. 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 They checked her pulse and noted it varied between 80 to 180. Blood pressure was high 180s/106. She has not had previous issues with arrhythmias. At present, denies chest pain. She does note upper abdominal discomfort at times. No recent blood in stools. No nausea or vomiting, no diarrhea. NO shortness of breath. No fevers. Does admit that she on occasion drinks a Vitamin B energy shot in the am before work due to fatigue. Had used Red Bull in the past but daughter had advised against this so she switched. States only uses rarely but did drink the B energy this am. Blood pressure has been variable since arrival. See vitals report Onset: Today, Sudden Duration: Hour(s): Location: Reports: Chest Quality: Reports: Ache Severity: Mild Improves with: Reports: Rest Worsens with: Reports: Movement Associated Symptoms: Reports: Chest Pain. Denies: Confusion, Cough, Fever/ Chills, Nausea/Vomiting, Shortness of Breath, Weakness - Related Data Allergies Allergy/AdvReac Type Severity Reaction Status Date / Time amoxicillin [Amoxicillin] Allergy Rash Verified 05/02/19 08:45 meperidine HCl [From Demerol] Allergy Cannot Verified 05/02/19 08:45 Remember Penicillins Allergy Shaking Verified 05/02/19 08:45 Home Meds: Home Meds ALPRAZolam [Alprazolam] 0.25 tab PO Q8H PRN 11/21/13 [History] atorvaSTATin [Lipitor] 40 mg PO BEDTIME 11/21/13 [History] Calcium Carbonate/Vitamin D3 [Calcium 600 + Vit D Tablet] 1 each PO BID [History] Warfarin [Coumadin] 5 mg PO DAILY 05/24/14 [History] Denosumab [Prolia] 60 mg SUBCUT Q180D 03/28/15 [History] Cholecalciferol (Vitamin D3) [Vitamin D] 5,000 unit PO DAILY 06/05/15 [History] Flaxseed Oil 1,000 mg PO BID 06/05/15 [History] Folic Acid 1 tab PO DAILY 09/30/18 [History] Multivitamin,Stress Formula [Stress Formula] 1 tab PO DAILY 09/30/18 [History] Past Medical History HEENT History: Reports: Cataract, Impaired Vision Gastrointestinal History: Reports: GERD 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 right knee meniscle tear Social & Family History - Family History Cardiac: Reports: Hypertension - Tobacco Use Smoking Status *Q: Never Smoker - Caffeine Use Caffeine Use: Reports: Coffee - Recreational Drug Use Recreational Drug Use: No - Living Situation & Occupation Living situation: Reports: Alone Occupation: Employed ED ROS GENERAL - Review of Systems Review Of Systems: See Below Constitutional: Denies: Fever, Chills, Malaise, Weakness HEENT: Reports: No Symptoms Respiratory: Denies: Shortness of Breath Cardiovascular: Reports: Chest Pain, Blood Pressure Problem, Lightheadedness. Denies: Edema Endocrine: Denies: Fatigue GI/Abdominal: Reports: Abdominal Pain. Denies: Nausea, Vomiting : Reports: No Symptoms Musculoskeletal: Reports: No Symptoms Skin: Reports: No Symptoms Neurological: Reports: No Symptoms ED EXAM, GENERAL - Physical Exam Exam: See Below Exam Limited By: No Limitations General Appearance: Alert, WD/WN, No Apparent Distress Ears: Normal External Exam, Normal TMs Nose: Normal Inspection, Normal Mucosa, No Blood Throat/Mouth: Normal Inspection, Normal Oropharynx Head: Normocephalic Neck: Normal Inspection, Supple, Non-Tender Respiratory/Chest: No Respiratory Distress, Lungs Clear, Normal Breath Sounds Cardiovascular: Regular Rate, Rhythm GI/Abdominal: Normal Bowel Sounds, Soft, Non-Tender Extremities: Normal Inspection, No Pedal Edema Neurological: Alert, Oriented Skin Exam: Warm, Dry Course - Vital Signs Last Recorded V/S: Last Vital Signs Temp 98.6 F 11/26/19 20:00 Pulse 77 05/02/19 20:00 Resp 16 05/02/19 20:00 BP 124/77 05/02/19 20:00 Pulse Ox 98 05/02/19 20:00 - Orders/Labs/Meds Orders: Active Orders 24 hr Category Date Time Status Chest 2V [CR] Stat Exams 05/02/19 08:38 Taken Medication Orders Acetaminophen (Tylenol) 650 mg PO Q4H PRN PRN Reason: Pain Last Admin: 05/02/19 16:34 Dose: 650 mg Alprazolam (Xanax) 0.25 mg PO Q8H PRN PRN Reason: Anxiety Atorvastatin Calcium (Lipitor) 40 mg PO BEDTIME [facility] Last Admin: 05/02/19 19:24 Dose: 40 mg Calcium Carbonate (Calcium Carbonate/Vitamin D 1250 Mg-200 Unit) 1 tab PO BID ALYCE Last Admin: 05/02/19 19:25 Dose: 1 tab Cholecalciferol (Vitamin D3) 125 mcg PO DAILY [facility] Morphine Sulfate (Morphine) 2 mg IVPUSH Q2H PRN PRN Reason: Pain (severe 7-10) Ondansetron HCl (Zofran Odt) 4 mg PO Q4H PRN PRN Reason: nausea, able to take PO Sodium Chloride (Saline Flush) 10 ml FLUSH ASDIRECTED PRN PRN Reason: Keep Vein Open Temazepam (Restoril) 15 mg PO BEDTIME PRN PRN Reason: Sleep Warfarin Sodium (Coumadin) 5 mg PO BEDTIME [facility] Last Admin: 05/02/19 19:25 Dose: 5 mg Labs: Laboratory Tests 05/02/19 05/02/19 05/02/19 Range/Units 08:45 08:45 08:45 WBC 7.1 (5.0-10.0) 10^3/uL RBC 4.88 (4.00-5.50) 10^6/uL Hgb 15.2 (12.0-16.0) g/dL Hct 43.8 (37.0-47.0) % MCV 89.8 (82.0-94.0) fL MCH 31.1 (27.0-32.0) pg MCHC 34.7 (33.0-38.0) g/dL RDW Coeff of Finn 12.8 (11.0-15.0) % Plt Count 231 (150-400) 10^3/uL Neut % (Auto) 61.1 (35-85) % Lymph % (Auto) 29.0 (10-55) % Mclennan % (Auto) 8.5 (0-16) % Eos % (Auto) 1.1 (0-5) % Baso % (Auto) 0.3 (0-3) % Neut # (Auto) 4.32 (1.80-7.00) 10^3/uL Lymph # (Auto) 2.05 (1.00-4.80) 10^3/uL Mclennan # (Auto) 0.60 (0.00-0.80) 10^3/uL Eos # (Auto) 0.08 (0.00-0.45) 10^3/uL Baso # (Auto) 0.02 10^3/uL PT 17.0 H (9.7-12.3) SEC INR 1.70 H (0.92-1.18) D-Dimer, Quantitative < 0.19 (0.00-0.50) Sodium 145 (136-145) mEq/L Potassium 3.2 L D (3.5-5.0) mEq/L Chloride 109 H (98-106) mEq/L Carbon Dioxide 25 (21-32) mmol/L BUN 16 (7-18) mg/dL Creatinine 0.8 (0.6-1.0) mg/dL Est Cr Clr Drug Dosing 55.61 mL/min Estimated GFR (MDRD) > 60 (>=60) mL/min Glucose 97 (75-99) mg/dL Calcium 10.1 (8.4-10.1) mg/dL Total Bilirubin 0.7 (0.0-1.0) mg/dL AST 17 (15-37) U/L ALT 24 (12-78) U/L Alkaline Phosphatase 59 (46-116) U/L Lactate Dehydrogenase 196 H (100-190) U/L Creatine Kinase 45 (21-215) U/L Troponin I < 0.017 (0.00-0.06) ng/mL Total Protein 6.8 (6.4-8.2) g/dL Albumin 3.7 (3.4-5.0) g/dL Meds: Medications Generic Name Dose Route Start Last Admin Trade Name Freq PRN Reason Stop Dose Admin Acetaminophen 650 mg 05/02/19 16:18 05/02/19 16:34 Tylenol PO 650 mg Q4H PRN Administration Pain Alprazolam 0.25 mg 05/02/19 17:18 Xanax PO Q8H PRN Anxiety Atorvastatin Calcium 40 mg 05/02/19 20:00 05/02/19 19:24 Lipitor PO 40 mg BEDTIME ALYCE Administration Calcium Carbonate 1 tab 05/02/19 20:00 05/02/19 19:25 Calcium Carbonate/Vitamin D 1250 Mg-200 Unit PO 1 tab BID ALYCE Administration Cholecalciferol 125 mcg 05/03/19 08:00 Vitamin D3 PO DAILY [facility] Morphine Sulfate 2 mg 05/02/19 11:00 Morphine IVPUSH Q2H PRN Pain (severe 7-10) Ondansetron HCl 4 mg 05/02/19 11:00 Zofran Odt PO Q4H PRN nausea, able to take PO Sodium Chloride 10 ml 05/02/19 11:00 Saline Flush FLUSH ASDIRECTED PRN Keep Vein Open Temazepam 15 mg 05/02/19 11:00 Restoril PO BEDTIME PRN Sleep Warfarin Sodium 5 mg 05/02/19 20:00 05/02/19 19:25 Coumadin PO 5 mg BEDTIME ALYCE Administration Discontinued Medications Generic Name Dose Route Start Last Admin Trade Name Freq PRN Reason Stop Dose Admin Alprazolam 0.0625 mg 05/02/19 13:14 Xanax PO Q8H PRN Anxiety Denosumab 60 mg 05/02/19 13:15 05/02/19 19:15 Prolia SUBCUT Not Given Q180D [facility] Enoxaparin Sodium 40 mg 05/02/19 11:00 05/02/19 16:38 Lovenox SUBCUT Not Given Q24H [facility] Potassium Chloride 20 meq 05/02/19 21:48 Klor-Con 10 PO 05/02/19 21:49 ONETIME ONE - Re-Assessments/Exams Free Text/Narrative Re-Assessment/Exam: 05/02/19 Lab results are normal. Does still get lightheaded when up, felt mild abdominal discomfort when over at xray. Will admit to hospital, continue cardiac monitoring, blood pressure monitoring, repeat labs. She and daughter are agreeable to this. Will repeat troponin later today. Departure - Departure Time of Disposition: 09:30 Disposition: Refer to Observation Condition: Good Clinical Impression: Heart palpitations, Hypertensive urgency - Problem List & Annotations (1) Heart palpitations SNOMED Code(s): 86902802 Code(s): R00.2 - PALPITATIONS Status: Acute Priority: High Current Visit: Yes (2) Hypertensive urgency SNOMED Code(s): 117192577 Code(s): I16.0 - HYPERTENSIVE URGENCY Status: Acute Priority: High Current Visit: Yes - Problem List Review Problem List Initiated/Reviewed/Updated: Yes - My Orders Last 24 Hours: My Active Orders 05/02/19 08:38 Chest 2V [CR] Stat - Assessment/Plan Admission H&P: Please use this note as an admission H&P Last 24 Hours: My Active Orders 05/02/19 08:38 Chest 2V [CR] Stat Assessment:: Heart Palpitations Hypertensive Urgency Plan: Will admit to observation. Repeat cardiac enzymes this afternoon and in am. Monitor blood pressure closely. Observe for any telemetry changes. Patient agreeable to admission.
[2019-05-03 07:32] LABS: CHLORIDE,CL 112 mEq/L (98-106); SODIUM,NA 147 mEq/L (136-145)
[2019-05-03] MEDS: Calcium Carbonate/Vitamin D3 1250 MG-200 Unit Tab PO SCH (07:44)
[2019-05-03] MEDS ORDERED: Cholecalciferol (Vitamin D3) 25 MCG Tab PO SCH (08:00)
[2019-05-03] MEDS: Acetaminophen 325 MG Tab PO PRN (11:57)
[2019-05-03 12:06] VITALS: BP 147/73; PULSE 83
== END 2019-05-03 14:10 | disposition home or self-care (01) ==
LOC: SUPCPDRO 08:10 → CC.ED 08:10 → CC.MS 10:46
PROVIDERS: ADMIT Physician Assistant Medical; ATTEND Family Medicine
DX: R00.2 Palpitations (principal); I16.0 Hypertensive urgency; K21.9 Gastro-esophageal reflux disease without esophagitis; M81.0 Age-related osteoporosis without current pathological fracture; F41.9 Anxiety disorder, unspecified; Z88.0 Allergy status to penicillin; Z88.5 Allergy status to narcotic agent; Z79.899 Other long term (current) drug therapy; Z79.01 Long term (current) use of anticoagulants
CPT/HCPCS: 36415; 71046; 80048; 80053; 82550; 83615; 84484; 85025; 85379; 85610; 93005; 99285-25; A9270-GY; G0378

== ENCOUNTER 2022-08-31 10:30 | Emergency (ER) | payer MEDICARE, BC ==
[2022-08-31 11:29] LABS: PTT,PARTIAL THROMBOPLSTIN TIME 26.1 SEC (20.0-30.0)
[2022-08-31 11:30] LABS: CHLORIDE,CL 109 mEq/L (98-106); SODIUM,NA 144 mEq/L (136-145)
[2022-08-31 11:31] LABS: ESTIMATED GFR 58 mL/min (>=60)
[2022-08-31 12:33] VITALS: BP 123/82; PULSE 69
== END 2022-08-31 11:55 | disposition home or self-care (01) ==
LOC: CC.ED 10:30
DX: S06.0X0A Concussion without loss of consciousness, initial encounter (principal); Z86.73 Personal history of transient ischemic attack (TIA), and cerebral infarction without residual deficits; Z79.01 Long term (current) use of anticoagulants; Z88.0 Allergy status to penicillin; Z88.5 Allergy status to narcotic agent; W00.0XXA Fall on same level due to ice and snow, initial encounter
CPT/HCPCS: 36415; 70450; 72125; 80053; 85025; 85610; 85730; 99284

== ENCOUNTER 2023-01-29 15:10 | Emergency (ER) | payer MEDICARE, BC ==
[2023-01-29 15:43] LABS: BASOPHILS ABSOLUTE AUTO 0.02 10^3/uL (0.00-0.50); BASOPHILS PERCENT AUTO 0.3 % (0-1); EOSINOPHILS ABSOLUTE AUTO 0.19 10^3/uL (0.00-1.50); EOSINOPHILS PERCENT AUTO 2.9 % (0-6); HEMATOCRIT 40.7 % (37.0-47.0); IMMATURE GRAN ABSOLUTE AUTO 0.01 10^3/uL (0.00-0.49); IMMATURE GRAN PERCENT AUTO 0.2 % (0.0-4.9); LYMPHOCYTES ABSOLUTE AUTO 2.61 10^3/uL (0.60-5.00); LYMPHOCYTES PERCENT AUTO 40.1 % (24-44); MEAN CORPUSCULAR HEMOGLOBIN 30.2 pg (27.0-32.0); MEAN CORPUSCULAR HGB CONC 34.4 g/dL (32.0-36.0); MEAN CORPUSCULAR VOLUME 87.7 fL (83.0-97.0); MONOCYTES ABSOLUTE AUTO 0.53 10^3/uL (0.00-1.50); MONOCYTES PERCENT AUTO 8.1 % (0-10); NEUTROPHILS ABSOLUTE AUTO 3.15 x10^3/uL (1.80-8.00); NEUTROPHILS PERCENT AUTO 48.4 % (41-71); PLATELET COUNT,PLT 228 10^3/uL (150-400); RED BLOOD CELL COUNT 4.64 x10^6/uL (4.00-5.50); WHITE BLOOD CELL COUNT,WBC 6.5 10^3/uL (4.0-11.0)
[2023-01-29 15:55] LABS: ALANINE AMINOTRANSFERASE,ALT 25 U/L (12-78); ALBUMIN 3.3 g/dL (3.4-5.0); ALKALINE PHOSPHATASE 83 U/L (46-116); ASPARTATE AMNIOTRANSFERASE,AST 17 U/L (15-37); BILIRUBIN TOTAL 0.3 mg/dL (0.0-1.0); BLOOD UREA NITROGEN,BUN 18 mg/dL (7-18); C-REACTIVE PROTEIN 0.41 mg/dL (<=0.30); CARBON DIOXIDE,CO2 25 mmol/L (21-32); CHLORIDE,CL 103 mEq/L (98-106); CREATININE 0.8 mg/dL (0.6-1.0); GLUCOSE RANDOM 133 mg/dL (75-99); POTASSIUM,K 3.8 mEq/L (3.5-5.0); PROTEIN TOTAL,TP 6.6 g/dL (6.4-8.2); SODIUM,NA 141 mEq/L (136-145)
[2023-01-29 15:56] LABS: ESTIMATED GFR 76 mL/min (>=60)
[2023-01-29] MEDS ORDERED: Ketorolac 30 MG/ML SDV IM ONE (17:26)
[2023-01-29] MEDS ORDERED: Take Home: Acetaminophen/HYDROcodone 325-5 MG, 2 Tab Pack PO ONE (17:28)
[2023-01-29 19:21] VITALS: BP 132/82; PULSE 89
== END 2023-01-29 18:00 | disposition home or self-care (01) ==
LOC: CC.ED 15:10
DX: S86.911A Strain of unspecified muscle(s) and tendon(s) at lower leg level, right leg, initial encounter (principal); Z88.0 Allergy status to penicillin; Z88.8 Allergy status to other drugs, medicaments and biological substances; Z79.01 Long term (current) use of anticoagulants; Z86.73 Personal history of transient ischemic attack (TIA), and cerebral infarction without residual deficits
CPT/HCPCS: 36415; 80053; 85025; 85379; 86140; 96372; 99283; A9270-GY; J1885